=== PATIENT | male | born 1930 | race Caucasian/White ===

== ENCOUNTER 2017-09-24 12:44 | Emergency (ER) | payer MEDICARE, OTHER ==
[~2017-09-24] VITALS: Ht 180.3 cm; Wt 69.5 kg
[~2017-09-24 12:44] MED LIST: AMLO-512 PO; ATEN-188 PO; DUTA.5 PO; SIMV80TA2 PO
[2017-09-24] MEDS ORDERED: AMLO1CAP6 PO (12:57)
[2017-09-24] MEDS ORDERED: ACETAMINOPHEN 500 MG TABLET PO ONE (14:45)
[2017-09-24 16:30] VITALS: BP 130/78
== END 2017-09-24 16:50 | disposition home or self-care (01) ==
LOC: EMS 12:45
DX: S80.01XA Contusion of right knee, initial encounter (principal); S70.01XA Contusion of right hip, initial encounter; I10 Essential (primary) hypertension; W01.0XXA Fall on same level from slipping, tripping and stumbling without subsequent striking against object, initial encounter; Y93.01 Activity, walking, marching and hiking; Y92.89 Other specified places as the place of occurrence of the external cause; Y99.8 Other external cause status
CPT/HCPCS: 99284

== ENCOUNTER 2018-09-09 13:27 | Inpatient (IN) | payer MEDICARE, OTHER ==
[~2018-09-09] VITALS: Ht 188 cm; Wt 64.9 kg
[~2018-09-09 13:27] MED LIST changes: +ACET-2247 PO; -ATEN-188 PO; +AUD NEB; +BISA10S PR; +DSS100 PO; -DUTA.5 PO; +HYDR20I IVP; +IPRNEB IH; +LORA0.5T2 IVP; +MAGN296S PO; +MORP4CAR IV; +MULT-1239 PO; +PANT40TA25 PO; -SIMV80TA2 PO; +SOD62.5V IV; +[UNRECOGNIZED DRUG - CODE] IV
[2018-09-09 15:50] VITALS: BP 151/55
[2018-09-09] MEDS ORDERED: LORazepam 2 MG/ML VIAL IVP PRN (16:00)
[2018-09-09] MEDS ORDERED: MAGNESIUM SULFATE 4 GM/WATER 100 ML IV PRN (16:00)
[2018-09-09] MEDS ORDERED: IPRATROPIUM BROMIDE 0.5 MG/2.5 ML NEB SOLUTION NEB PRN (16:00)
[2018-09-09] MEDS ORDERED: MAGNESIUM SULFATE 2 GM/WATER 50 ML IV PRN (16:00)
[2018-09-09] MEDS ORDERED: DOCUSATE SODIUM 283 MG/5 ML MINI-ENEMA PR PRN (16:00)
[2018-09-09] MEDS ORDERED: ACETAMINOPHEN 325 MG TABLET PO PRN (16:00)
[2018-09-09] MEDS ORDERED: MAGNESIUM OXIDE 400 MG TABLET PO PRN (16:00)
[2018-09-09] MEDS ORDERED: ALBUTEROL SULFATE 2.5 MG/0.5 ML NEB SOLUTION NEB PRN (16:00)
[2018-09-09] MEDS: DEXTROSE 5%-0.45% SODIUM CHL 1,000 ML IV SCH (16:57)
[2018-09-09] MEDS: SENNA 187 MG TABLET PO SCH (20:57)
[2018-09-09] MEDS: DOCUSATE SODIUM 100 MG CAPSULE PO SCH (20:57)
[2018-09-09 23:00] VITALS: BP 153/67
[2018-09-10] MEDS: TraMADol HCL 50 MG TABLET PO PRN (00:14)
[2018-09-10] MEDS: 0.9% SODIUM CHLORIDE 10 ML SYRINGE IVP SCH ×3 (00:14→16:43)
[2018-09-10 07:54] LABS: BASOPHILS % (AUTO) 0.1 % (0.0-2.0); EOSINOPHILS % (AUTO) 4.1 % (1.0-6.0); HEMATOCRIT 22.3 % (41-53); HEMOGLOBIN 7.6 g/dL (13.5-17.5); LYMPHOCYTES # (AUTO) 0.5 K/uL (1.0-4.8); LYMPHOCYTES % (AUTO) 6.8 % (22.0-44.0); MEAN CORPUSCULAR HEMOGLOBIN 33.3 pg (26.0-34.0); MEAN CORPUSCULAR HGB CONC 34.2 G/dL (31.0-37.0); MEAN CORPUSCULAR VOLUME 97 fL (80-100); MONOCYTES # (AUTO) 0.8 K/uL (0.1-1.0); MONOCYTES % (AUTO) 10.8 % (2.0-9.0); NEUTROPHILS # (AUTO) 5.7 K/uL (1.8-7.7); NEUTROPHILS % (AUTO) 78.2 % (40.0-70.0); PLATELET COUNT (AUTO) 274 K/uL (150-450); RED BLOOD CELL COUNT(AUTO) 2.29 MIL/uL (4.50-5.90); RED CELL DISTRIBUTION WIDTH 27.2 % (11.5-14.5)
[2018-09-10 08:00] VITALS: BP 140/56
[2018-09-10 09:23] LABS: ALANINE AMINOTRANSFERASE 14 U/L (12-78); ALBUMIN 2.7 g/dL (3.4-5.0); ALKALINE PHOSPHATASE 59 U/L (46-116); ANION GAP 7 mmol/L (8-16); ASPARTATE AMINOTRANSFERASE 19 U/L (15-37); BILIRUBIN,TOTAL 1.4 mg/dL (0.1-1.0); CALCIUM, TOTAL 7.9 mg/dL (8.8-10.5); CARBON DIOXIDE 26 mmol/L (22-29); CHLORIDE 108 mmol/L (98-107); CREATININE 1.06 mg/dL (0.60-1.30); GLOMERULAR FILTR. RATE CALC > 60 mL/min (>60); GLUCOSE,RANDOM 127 mg/dL (70-110); POTASSIUM 4.1 mmol/L (3.5-5.1); SODIUM SERUM 141 mmol/L (136-145); TOTAL PROTEIN, SERUM 5.2 g/dL (6.4-8.2); UREA NITROGEN, BLOOD 25 mg/dL (7-18)
[2018-09-10] MEDS: DOCUSATE SODIUM 100 MG CAPSULE PO SCH ×2 (09:34→20:37)
[2018-09-10] MEDS: AmLODIPine BESYLATE 10 MG TABLET PO SCH (09:34)
[2018-09-10] MEDS: MULTIVITAMINS WITH MINERALS, THERAPEUTIC TABLET PO SCH (09:34)
[2018-09-10] MEDS: PANTOPRAZOLE SODIUM 40 MG DR TABLET PO SCH (09:34)
[2018-09-10] MEDS: CALCIUM CIT/VITAMIN D3 200 MG-250 UNITS TABLET PO SCH ×2 (12:08→20:37)
[2018-09-10] MEDS: DEXTROSE 5%-0.45% SODIUM CHL 1,000 ML IV SCH (12:10)
[2018-09-10 16:11] VITALS: BP 135/64
[2018-09-10] MEDS: FERROUS GLUCONATE 324 MG TABLET PO SCH (17:38)
[2018-09-10 20:35] VITALS: BP 147/58
[2018-09-10] MEDS: MELATONIN 3 MG TABLET PO PRN (20:37)
[2018-09-10] MEDS: SENNA 187 MG TABLET PO SCH (20:37)
[2018-09-11] VITALS: BP 140/61
[2018-09-11] MEDS: 0.9% SODIUM CHLORIDE 10 ML SYRINGE IVP SCH ×2 (00:24→08:00)
[2018-09-11 07:20] LABS: BASOPHILS % (AUTO) 0.1 % (0.0-2.0); EOSINOPHILS % (AUTO) 5.5 % (1.0-6.0); HEMATOCRIT 21.5 % (41-53); HEMOGLOBIN 7.4 g/dL (13.5-17.5); LYMPHOCYTES # (AUTO) 0.4 K/uL (1.0-4.8); LYMPHOCYTES % (AUTO) 5.4 % (22.0-44.0); MEAN CORPUSCULAR HEMOGLOBIN 33.7 pg (26.0-34.0); MEAN CORPUSCULAR HGB CONC 34.3 G/dL (31.0-37.0); MEAN CORPUSCULAR VOLUME 98 fL (80-100); MONOCYTES # (AUTO) 0.6 K/uL (0.1-1.0); MONOCYTES % (AUTO) 7.7 % (2.0-9.0); NEUTROPHILS # (AUTO) 6.5 K/uL (1.8-7.7); NEUTROPHILS % (AUTO) 81.3 % (40.0-70.0); PLATELET COUNT (AUTO) 281 K/uL (150-450); RED BLOOD CELL COUNT(AUTO) 2.19 MIL/uL (4.50-5.90); RED CELL DISTRIBUTION WIDTH 26.9 % (11.5-14.5)
[2018-09-11 07:32] VITALS: BP 155/62
[2018-09-11] MEDS: AmLODIPine BESYLATE 10 MG TABLET PO SCH (08:36)
[2018-09-11] MEDS: CALCIUM CIT/VITAMIN D3 200 MG-250 UNITS TABLET PO SCH ×2 (08:36→20:38)
[2018-09-11] MEDS: MULTIVITAMINS WITH MINERALS, THERAPEUTIC TABLET PO SCH (08:37)
[2018-09-11] MEDS: PANTOPRAZOLE SODIUM 40 MG DR TABLET PO SCH (08:37)
[2018-09-11] MEDS: FERROUS GLUCONATE 324 MG TABLET PO SCH ×2 (08:37→17:33)
[2018-09-11] MEDS: DOCUSATE SODIUM 100 MG CAPSULE PO SCH (08:37)
[2018-09-11] MEDS: DEXTROSE 5%-0.45% SODIUM CHL 1,000 ML IV SCH (08:53)
[2018-09-11 16:18] VITALS: BP_SYST 129; BP_SYST 134; BP_DIAS 58; BP_DIAS 60
[2018-09-11] MEDS: MAGNESIUM HYDROXIDE SUSPENSION 30 ML UDCUP PO PRN (20:37)
[2018-09-11] MEDS: SENNA 187 MG TABLET PO SCH (20:38)
[2018-09-11] MEDS: DOCUSATE SODIUM 250 MG CAPSULE PO SCH (20:38)
[2018-09-11] MEDS: MELATONIN 3 MG TABLET PO PRN (20:38)
[2018-09-12 00:22] VITALS: BP 150/84
[2018-09-12] MEDS: TraMADol HCL 50 MG TABLET PO PRN ×2 (01:26→23:47)
[2018-09-12 06:45] LABS: BASOPHILS % (AUTO) 0.2 % (0.0-2.0); EOSINOPHILS % (AUTO) 2.1 % (1.0-6.0); HEMATOCRIT 21.4 % (41-53); HEMOGLOBIN 7.4 g/dL (13.5-17.5); LYMPHOCYTES # (AUTO) 0.5 K/uL (1.0-4.8); LYMPHOCYTES % (AUTO) 5.7 % (22.0-44.0); MEAN CORPUSCULAR HEMOGLOBIN 33.9 pg (26.0-34.0); MEAN CORPUSCULAR HGB CONC 34.7 G/dL (31.0-37.0); MEAN CORPUSCULAR VOLUME 98 fL (80-100); MONOCYTES # (AUTO) 0.9 K/uL (0.1-1.0); MONOCYTES % (AUTO) 9.4 % (2.0-9.0); NEUTROPHILS # (AUTO) 7.5 K/uL (1.8-7.7); NEUTROPHILS % (AUTO) 82.6 % (40.0-70.0); PLATELET COUNT (AUTO) 289 K/uL (150-450); RED BLOOD CELL COUNT(AUTO) 2.19 MIL/uL (4.50-5.90); RED CELL DISTRIBUTION WIDTH 26.5 % (11.5-14.5)
[2018-09-12 07:55] VITALS: BP 153/63
[2018-09-12] MEDS: FERROUS GLUCONATE 324 MG TABLET PO SCH ×2 (08:26→17:54)
[2018-09-12] MEDS: AmLODIPine BESYLATE 10 MG TABLET PO SCH (08:26)
[2018-09-12] MEDS: PANTOPRAZOLE SODIUM 40 MG DR TABLET PO SCH (08:26)
[2018-09-12] MEDS: DOCUSATE SODIUM 250 MG CAPSULE PO SCH ×2 (08:26→20:29)
[2018-09-12] MEDS: MULTIVITAMINS WITH MINERALS, THERAPEUTIC TABLET PO SCH (08:26)
[2018-09-12] MEDS: CALCIUM CIT/VITAMIN D3 200 MG-250 UNITS TABLET PO SCH ×2 (08:27→20:29)
[2018-09-12] MEDS ORDERED: CAMPHOR/MENTHOL 222 ML LOTION TP PRN (09:00)
[2018-09-12 10:00] VITALS: BP 129/54
[2018-09-12 15:45] VITALS: BP 141/62
[2018-09-12] MEDS: SENNA 187 MG TABLET PO SCH (20:29)
[2018-09-12] MEDS: MELATONIN 3 MG TABLET PO PRN (20:30)
[2018-09-12 23:47] VITALS: BP 155/84
[2018-09-13] VITALS (7 sets, daily range): BP systolic 105–151; BP diastolic 57–77
[2018-09-13 07:03] LABS: CHOL/HDL RATIO 2.9 (4.2-7.3)
[2018-09-13] MEDS: DOCUSATE SODIUM 250 MG CAPSULE PO SCH ×2 (08:09→20:12)
[2018-09-13] MEDS: FERROUS GLUCONATE 324 MG TABLET PO SCH ×2 (08:09→17:13)
[2018-09-13] MEDS: CALCIUM CIT/VITAMIN D3 200 MG-250 UNITS TABLET PO SCH ×2 (08:10→20:12)
[2018-09-13] MEDS: MAGNESIUM HYDROXIDE SUSPENSION 30 ML UDCUP PO PRN (08:10)
[2018-09-13] MEDS: PANTOPRAZOLE SODIUM 40 MG DR TABLET PO SCH ×2 (08:10→17:12)
[2018-09-13] MEDS: MULTIVITAMINS WITH MINERALS, THERAPEUTIC TABLET PO SCH (08:10)
[2018-09-13] MEDS: AmLODIPine BESYLATE 10 MG TABLET PO SCH (08:10)
[2018-09-13] MEDS ORDERED: LACTULOSE 20 GM/30 ML SOLUTION UDCUP PO PRN (12:45)
[2018-09-13] MEDS ORDERED: EPOETIN ALFA 10,000 UNITS/ML VIAL SQ SCH (13:15)
[2018-09-13 20:09] LABS: % IRON SATURATION 19.5 % (30-44)
[2018-09-13] MEDS: SENNA 187 MG TABLET PO SCH (20:12)
[2018-09-13] MEDS: MELATONIN 3 MG TABLET PO PRN (20:12)
[2018-09-13] MEDS: TraMADol HCL 50 MG TABLET PO PRN (23:33)
[2018-09-14 01:57] LABS: APPEARANCE,URINE CLEAR (CLEAR); BILIRUBIN,URINE NEGATIVE (NEGATIVE); GLUCOSE, URINE (UA) NEGATIVE (NEGATIVE); KETONES,URINE TRACE mg/dL (NEGATIVE); LEUKOCYTE ESTERASE ,URINE NEGATIVE (NEGATIVE); NITRATE,URINE NEGATIVE (NEGATIVE); OCCULT BLOOD,URINE TRACE (NEGATIVE); PH,URINE 5.5 (5.0-8.0); PROTEIN,URINE NEGATIVE (NEGATIVE); UROBILINOGEN,URINE 0.2 mg/dL (<=1.0)
[2018-09-14 02:15] LABS: BACTERIA,URINE None Seen /HPF (None Seen); SQUAMOUS EPITHELIAL CELL,UR Few /LPF (None Seen)
[2018-09-14] MEDS: PANTOPRAZOLE SODIUM 40 MG DR TABLET PO SCH (06:31)
[2018-09-14 07:19] VITALS: BP 160/108
[2018-09-14 07:27] LABS: ANION GAP 6 mmol/L (8-16); CALCIUM, TOTAL 9.1 mg/dL (8.8-10.5); CARBON DIOXIDE 28 mmol/L (22-29); CHLORIDE 103 mmol/L (98-107); CREATININE 1.14 mg/dL (0.60-1.30); GLUCOSE,RANDOM 98 mg/dL (70-110); POTASSIUM 3.9 mmol/L (3.5-5.1); SODIUM SERUM 137 mmol/L (136-145); UREA NITROGEN, BLOOD 26 mg/dL (7-18)
[2018-09-14 07:28] LABS: GLOMERULAR FILTR. RATE CALC > 60 mL/min (>60)
[2018-09-14 08:00] VITALS: BP 149/62
[2018-09-14] MEDS: MULTIVITAMINS WITH MINERALS, THERAPEUTIC TABLET PO SCH (08:16)
[2018-09-14] MEDS: FERROUS GLUCONATE 324 MG TABLET PO SCH (08:16)
[2018-09-14] MEDS: CALCIUM CIT/VITAMIN D3 200 MG-250 UNITS TABLET PO SCH (08:16)
[2018-09-14] MEDS: AmLODIPine BESYLATE 10 MG TABLET PO SCH (08:16)
[2018-09-14] MEDS: DOCUSATE SODIUM 250 MG CAPSULE PO SCH (08:17)
[2018-09-14] MEDS ORDERED: CIPROFLOXACIN HCL 250 MG TABLET PO SCH (13:15)
[2018-09-14 13:19] LABS: GLUCOMETER DEV NAME(LOC) 2WR.1; GLUCOSE,POINT OF CARE 114 MG/DL (70-110)
[2018-09-14] MEDS ORDERED: SODIUM CHLORIDE 0.9% 1,000 ML IV ONE (13:33)
[2018-09-14] MEDS ORDERED: SODIUM CHLORIDE 0.9% 1,000 ML IV SCH (13:45)
[2018-09-14] MEDS ORDERED: ACETAMINOPHEN 325 MG TABLET PO PRN (14:00)
[2018-09-14] MEDS ORDERED: SODIUM CHLORIDE 0.9% 100 ML ONE (14:03)
[2018-09-14] MEDS ORDERED: IOVERSOL 350 MG/ML 100 ML VIAL ONE (14:03)
[2018-09-14 14:22] LABS: BASOPHILS % (AUTO) 0.7 % (0.0-2.0); EOSINOPHILS % (AUTO) 0.4 % (1.0-6.0); HEMATOCRIT 24.4 % (41-53); HEMOGLOBIN 8.1 g/dL (13.5-17.5); LYMPHOCYTES # (AUTO) 0.5 K/uL (1.0-4.8); LYMPHOCYTES % (AUTO) 1.4 % (22.0-44.0); MEAN CORPUSCULAR HEMOGLOBIN 32.7 pg (26.0-34.0); MEAN CORPUSCULAR HGB CONC 33.2 G/dL (31.0-37.0); MEAN CORPUSCULAR VOLUME 99 fL (80-100); MONOCYTES # (AUTO) 0.7 K/uL (0.1-1.0); MONOCYTES % (AUTO) 2.1 % (2.0-9.0); NEUTROPHILS # (AUTO) 32.2 K/uL (1.8-7.7); PLATELET COUNT (AUTO) 561 K/uL (150-450); RED BLOOD CELL COUNT(AUTO) 2.48 MIL/uL (4.50-5.90); RED CELL DISTRIBUTION WIDTH 26.7 % (11.5-14.5)
[2018-09-14 14:33] LABS: CALCIUM, TOTAL 9.4 mg/dL (8.8-10.5); CREATININE 1.27 mg/dL (0.60-1.30); POTASSIUM 4.6 mmol/L (3.5-5.1)
[2018-09-14 14:39] LABS: ALBUMIN 3.6 g/dL (3.4-5.0); BILIRUBIN,TOTAL 2.3 mg/dL (0.1-1.0); TOTAL PROTEIN, SERUM 6.6 g/dL (6.4-8.2)
[2018-09-14 14:52] LABS: NEUTROPHILS % (AUTO) 95.4 % (40.0-70.0)
[2018-09-14 15:42] LABS: PLATELET MORPHOLOGY COMMENT GIANT PLTS PRESENT
[2018-09-14] MEDS ORDERED: CefTRIAXone 1 GM/DEXTROSE 50 ML IV SCH (16:00)
[2018-09-15 13:06] LABS: ALPHA-1 (IFE & PEP) 0.4 g/dL (0.0-0.4); GAMMA GLOBULINS (IFE & ELP) 0.9 g/dL (0.4-1.8); IGM (IMMUNOFIXATION) 87 mg/dL (15-143)
== END 2018-09-14 14:15 | disposition short-term general hospital (02) | DRG 535 ==
LOC: 2WR 13:27
PROVIDERS: ADMIT Physical Medicine & Rehabilitation; ATTEND Physical Medicine & Rehabilitation
DX: S72.002A Fracture of unspecified part of neck of left femur, initial encounter for closed fracture (principal); J96.01 Acute respiratory failure with hypoxia; N39.0 Urinary tract infection, site not specified; N17.9 Acute kidney failure, unspecified; G93.40 Encephalopathy, unspecified; D64.9 Anemia, unspecified; I10 Essential (primary) hypertension; I48.91 Unspecified atrial fibrillation; D50.9 Iron deficiency anemia, unspecified; E83.51 Hypocalcemia; G47.00 Insomnia, unspecified; I12.9 Hypertensive chronic kidney disease with stage 1 through stage 4 chronic kidney disease, or unspecified chronic kidney disease; N18.9 Chronic kidney disease, unspecified; K21.9 Gastro-esophageal reflux disease without esophagitis; K59.00 Constipation, unspecified; Z86.73 Personal history of transient ischemic attack (TIA), and cerebral infarction without residual deficits; Z91.81 History of falling; Z79.899 Other long term (current) drug therapy
CPT/HCPCS: 71275; 82271; 82728; 82784; 83540; 83550; 83735; 84155; 84165; 85379; 86334; 87040; 87081; 87086; 92610; 93005; 94761; 97110; 97116; 97150; 97162; 97167; 97530; 97535; 99366; J0885; J7030; J7050

== ENCOUNTER 2018-09-14 14:40 | Inpatient (IN) | payer MEDICARE, OTHER ==
[~2018-09-14] VITALS: Ht 182.9 cm; Wt 64.5 kg
[2018-09-14] MEDS ORDERED: SODIUM CHLORIDE 0.9% 0 ML IV ONE ×2 (15:38→15:45)
[2018-09-14] MEDS ORDERED: ACETAMINOPHEN 650 MG RECTAL SUPPOSITORY PR PRN (15:45)
[2018-09-14 16:00] VITALS: BP 142/53
[2018-09-14] MEDS: PIPERACILLIN SODIUM/TAZOBACTAM 2.25 GM in DEXTROSE 5%-WATER 50 ML IV SCH ×2 (16:21→21:30)
[2018-09-14] MEDS ORDERED: ONDANSETRON HCL 4 MG/2 ML VIAL IVP PRN (17:15)
[2018-09-14] MEDS ORDERED: ALBUTEROL SULFATE 2.5 MG/0.5 ML NEB SOLUTION NEB PRN (17:15)
[2018-09-14] MEDS ORDERED: 0.9% SODIUM CHLORIDE 10 ML SYRINGE IVP PRN (17:15)
[2018-09-14] MEDS ORDERED: IPRATROPIUM BROMIDE 0.5 MG/2.5 ML NEB SOLUTION NEB PRN (17:15)
[2018-09-14] MEDS: SODIUM CHLORIDE 0.9% 1,000 ML IV SCH (18:53)
[2018-09-14 20:00] VITALS: BP 139/59
[2018-09-14] MEDS ORDERED: 0.9% SODIUM CHLORIDE 5 ML NEB SOLUTION NEB ONE (21:14)
[2018-09-14] MEDS: IPRATROPIUM BROMIDE 0.5 MG/2.5 ML NEB SOLUTION NEB SCH (21:16)
[2018-09-14] MEDS: ALBUTEROL SULFATE 2.5 MG/0.5 ML NEB SOLUTION NEB SCH (21:16)
[2018-09-14] MEDS: PANTOPRAZOLE SODIUM 40 MG/VIAL IVP SCH (21:29)
[2018-09-14 22:07] VITALS: BP 156/57
[2018-09-14] MEDS: MORPHINE SULFATE 4 MG/ML SYRINGE IVP PRN (22:07)
[2018-09-14 23:00] VITALS: BP 119/45
[2018-09-15] VITALS (15 sets, daily range): BP systolic 113–166; BP diastolic 45–107
[2018-09-15] MEDS: IPRATROPIUM BROMIDE 0.5 MG/2.5 ML NEB SOLUTION NEB SCH ×4 (02:07→19:56)
[2018-09-15] MEDS: ALBUTEROL SULFATE 2.5 MG/0.5 ML NEB SOLUTION NEB SCH ×4 (02:08→19:56)
[2018-09-15] MEDS: PIPERACILLIN SODIUM/TAZOBACTAM 2.25 GM in DEXTROSE 5%-WATER 50 ML IV SCH ×4 (04:56→22:28)
[2018-09-15 05:06] LABS: HEMOGLOBIN 7.1 g/dL (13.5-17.5); MEAN CORPUSCULAR HEMOGLOBIN 34.3 pg (26.0-34.0); MEAN CORPUSCULAR HGB CONC 34.4 G/dL (31.0-37.0); MEAN CORPUSCULAR VOLUME 100 fL (80-100); PLATELET COUNT (AUTO) 404 K/uL (150-450); RED BLOOD CELL COUNT(AUTO) 2.06 MIL/uL (4.50-5.90)
[2018-09-15 05:16] LABS: ANION GAP 5 mmol/L (8-16); CALCIUM, TOTAL 8.8 mg/dL (8.8-10.5); CARBON DIOXIDE 30 mmol/L (22-29); CHLORIDE 106 mmol/L (98-107); CREATININE 1.58 mg/dL (0.60-1.30); GLOMERULAR FILTR. RATE CALC 42 mL/min (>60); GLUCOSE,RANDOM 144 mg/dL (70-110); SODIUM SERUM 141 mmol/L (136-145); UREA NITROGEN, BLOOD 31 mg/dL (7-18)
[2018-09-15 05:35] LABS: LACTIC ACID 2.5 mmol/L (0.4-2.0)
[2018-09-15 06:03] LABS: HEMATOCRIT 20.5 % (41-53)
[2018-09-15 06:11] LABS: BAND NEUTROPHILS % (MANUAL) 39 % (0-5); LYMPHOCYTES % (MANUAL) 1 % (22-44); MONOCYTES % (MANUAL) 1 % (2-9); PLATELET MORPHOLOGY COMMENT GIANT PLTS PRESENT; SEGMENTED NEUTROPHILS % 59 % (40-70)
[2018-09-15] MEDS: PANTOPRAZOLE SODIUM 40 MG/VIAL IVP SCH ×2 (08:05→21:07)
[2018-09-15 11:34] LABS: BASOPHILS % (AUTO) 0.2 % (0.0-2.0); EOSINOPHILS % (AUTO) 1.3 % (1.0-6.0); LYMPHOCYTES # (AUTO) 0.6 K/uL (1.0-4.8); LYMPHOCYTES % (AUTO) 2.2 % (22.0-44.0); MEAN CORPUSCULAR HEMOGLOBIN 33.1 pg (26.0-34.0); MEAN CORPUSCULAR HGB CONC 33.9 G/dL (31.0-37.0); MEAN CORPUSCULAR VOLUME 98 fL (80-100); MONOCYTES # (AUTO) 1.4 K/uL (0.1-1.0); MONOCYTES % (AUTO) 5.3 % (2.0-9.0); NEUTROPHILS # (AUTO) 23.6 K/uL (1.8-7.7); PLATELET COUNT (AUTO) 402 K/uL (150-450); RED BLOOD CELL COUNT(AUTO) 2.03 MIL/uL (4.50-5.90); RED CELL DISTRIBUTION WIDTH 26.8 % (11.5-14.5)
[2018-09-15 11:39] LABS: HEMATOCRIT 19.8 % (41-53); HEMOGLOBIN 6.7 g/dL (13.5-17.5)
[2018-09-15] MEDS ORDERED: SODIUM CHLORIDE 0.9% 250 ML IV ONE (12:14)
[2018-09-15] MEDS: SODIUM CHLORIDE 0.9% 1,000 ML IV SCH (12:15)
[2018-09-15 12:25] LABS: PLATELET MORPHOLOGY COMMENT GIANT PLTS PRESENT
[2018-09-15 12:26] LABS: BILIRUBIN,DIRECT 0.8 mg/dL (0.00-0.20); BILIRUBIN,TOTAL 1.7 mg/dL (0.1-1.0); TOTAL PROTEIN, SERUM 5.5 g/dL (6.4-8.2)
[2018-09-15] MEDS: MORPHINE SULFATE 4 MG/ML SYRINGE IVP PRN ×2 (13:59→21:08)
[2018-09-15] MEDS: DOCUSATE SODIUM 100 MG CAPSULE PO SCH (21:07)
[2018-09-16] VITALS (8 sets, daily range): BP systolic 137–175; BP diastolic 58–76
[2018-09-16] MEDS: HALOPERIDOL LACTATE 5 MG/ML VIAL IVP PRN ×2 (00:08→09:32)
[2018-09-16] MEDS: IPRATROPIUM BROMIDE 0.5 MG/2.5 ML NEB SOLUTION NEB SCH ×4 (01:46→19:31)
[2018-09-16] MEDS: ALBUTEROL SULFATE 2.5 MG/0.5 ML NEB SOLUTION NEB SCH ×4 (01:46→19:31)
[2018-09-16] MEDS: PIPERACILLIN SODIUM/TAZOBACTAM 2.25 GM in DEXTROSE 5%-WATER 50 ML IV SCH ×4 (04:39→22:16)
[2018-09-16] MEDS: SODIUM CHLORIDE 0.9% 1,000 ML IV SCH ×2 (04:40→20:13)
[2018-09-16 04:54] LABS: BASOPHILS % (AUTO) 0.2 % (0.0-2.0); EOSINOPHILS % (AUTO) 0.2 % (1.0-6.0); HEMATOCRIT 24.9 % (41-53); HEMOGLOBIN 8.8 g/dL (13.5-17.5); LYMPHOCYTES # (AUTO) 0.2 K/uL (1.0-4.8); MEAN CORPUSCULAR HGB CONC 35.2 G/dL (31.0-37.0); MEAN CORPUSCULAR VOLUME 97 fL (80-100); MONOCYTES # (AUTO) 1.1 K/uL (0.1-1.0); NEUTROPHILS # (AUTO) 21.6 K/uL (1.8-7.7); PLATELET COUNT (AUTO) 488 K/uL (150-450); RED BLOOD CELL COUNT(AUTO) 2.57 MIL/uL (4.50-5.90); RED CELL DISTRIBUTION WIDTH 25.5 % (11.5-14.5)
[2018-09-16 04:56] LABS: NEUTROPHILS % (AUTO) 93.6 % (40.0-70.0)
[2018-09-16 05:04] LABS: CALCIUM, TOTAL 8.7 mg/dL (8.8-10.5); CREATININE 1.64 mg/dL (0.60-1.30); MAGNESIUM 1.8 mg/dL (1.80-2.40); POTASSIUM 4.7 mmol/L (3.5-5.1)
[2018-09-16 05:25] LABS: PLATELET MORPHOLOGY COMMENT GIANT PLTS PRESENT
[2018-09-16] MEDS: DOCUSATE SODIUM 100 MG CAPSULE PO SCH ×2 (07:42→20:12)
[2018-09-16] MEDS: PANTOPRAZOLE SODIUM 40 MG/VIAL IVP SCH ×2 (07:42→20:12)
[2018-09-16] MEDS: MORPHINE SULFATE 4 MG/ML SYRINGE IVP PRN ×2 (10:42→22:19)
[2018-09-16] MEDS: AmLODIPine BESYLATE 2.5 MG TABLET PO SCH (13:42)
[2018-09-17 00:02] VITALS: BP 149/57
[2018-09-17] MEDS: IPRATROPIUM BROMIDE 0.5 MG/2.5 ML NEB SOLUTION NEB SCH ×4 (02:33→20:04)
[2018-09-17] MEDS: ALBUTEROL SULFATE 2.5 MG/0.5 ML NEB SOLUTION NEB SCH ×4 (02:33→20:05)
[2018-09-17] MEDS: PIPERACILLIN SODIUM/TAZOBACTAM 2.25 GM in DEXTROSE 5%-WATER 50 ML IV SCH ×4 (02:58→21:06)
[2018-09-17 05:24] VITALS: BP 154/67
[2018-09-17 05:55] LABS: BASOPHILS % (AUTO) 0.1 % (0.0-2.0); EOSINOPHILS % (AUTO) 0.2 % (1.0-6.0); HEMATOCRIT 24.6 % (41-53); HEMOGLOBIN 8.8 g/dL (13.5-17.5); LYMPHOCYTES # (AUTO) 0.4 K/uL (1.0-4.8); LYMPHOCYTES % (AUTO) 2.3 % (22.0-44.0); MEAN CORPUSCULAR HEMOGLOBIN 35.1 pg (26.0-34.0); MEAN CORPUSCULAR HGB CONC 35.7 G/dL (31.0-37.0); MEAN CORPUSCULAR VOLUME 98 fL (80-100); MONOCYTES # (AUTO) 0.9 K/uL (0.1-1.0); MONOCYTES % (AUTO) 5.2 % (2.0-9.0); NEUTROPHILS # (AUTO) 16.2 K/uL (1.8-7.7); PLATELET COUNT (AUTO) 489 K/uL (150-450); RED CELL DISTRIBUTION WIDTH 24.9 % (11.5-14.5)
[2018-09-17 06:04] LABS: ALBUMIN 3.2 g/dL (3.4-5.0); BILIRUBIN,TOTAL 2.3 mg/dL (0.1-1.0); CALCIUM, TOTAL 8.7 mg/dL (8.8-10.5); CREATININE 1.62 mg/dL (0.60-1.30); POTASSIUM 4.5 mmol/L (3.5-5.1); TOTAL PROTEIN, SERUM 6.1 g/dL (6.4-8.2)
[2018-09-17 06:06] LABS: NEUTROPHILS % (AUTO) 92.2 % (40.0-70.0)
[2018-09-17 07:21] LABS: PLATELET MORPHOLOGY COMMENT LARGE PLTS PRESENT
[2018-09-17 07:43] VITALS: BP 155/62
[2018-09-17] MEDS: AmLODIPine BESYLATE 2.5 MG TABLET PO SCH (07:51)
[2018-09-17] MEDS: PANTOPRAZOLE SODIUM 40 MG/VIAL IVP SCH ×2 (07:51→20:36)
[2018-09-17] MEDS: DOCUSATE SODIUM 100 MG CAPSULE PO SCH ×2 (07:53→20:36)
[2018-09-17 11:24] VITALS: BP 150/65
[2018-09-17] MEDS: DEXTROSE 5%-WATER 1,000 ML IV SCH (11:57)
[2018-09-17 16:42] VITALS: BP 149/82
[2018-09-17 19:54] VITALS: BP 159/74
[2018-09-18 00:07] VITALS: BP 155/75
[2018-09-18] MEDS: IPRATROPIUM BROMIDE 0.5 MG/2.5 ML NEB SOLUTION NEB SCH ×4 (02:23→20:37)
[2018-09-18] MEDS: ALBUTEROL SULFATE 2.5 MG/0.5 ML NEB SOLUTION NEB SCH ×4 (02:23→20:37)
[2018-09-18] MEDS: PIPERACILLIN SODIUM/TAZOBACTAM 2.25 GM in DEXTROSE 5%-WATER 50 ML IV SCH ×4 (04:00→22:21)
[2018-09-18 04:04] VITALS: BP 153/62
[2018-09-18 07:02] LABS: BASOPHILS % (AUTO) 0.2 % (0.0-2.0); EOSINOPHILS % (AUTO) 0.4 % (1.0-6.0); HEMATOCRIT 24.4 % (41-53); HEMOGLOBIN 8.4 g/dL (13.5-17.5); LYMPHOCYTES # (AUTO) 0.3 K/uL (1.0-4.8); LYMPHOCYTES % (AUTO) 2.3 % (22.0-44.0); MEAN CORPUSCULAR HEMOGLOBIN 33.6 pg (26.0-34.0); MEAN CORPUSCULAR HGB CONC 34.5 G/dL (31.0-37.0); MEAN CORPUSCULAR VOLUME 98 fL (80-100); MONOCYTES # (AUTO) 0.7 K/uL (0.1-1.0); MONOCYTES % (AUTO) 5.8 % (2.0-9.0); NEUTROPHILS # (AUTO) 11.7 K/uL (1.8-7.7); PLATELET COUNT (AUTO) 479 K/uL (150-450); RED CELL DISTRIBUTION WIDTH 25.3 % (11.5-14.5)
[2018-09-18 07:16] LABS: BILIRUBIN,TOTAL 2.2 mg/dL (0.1-1.0); CALCIUM, TOTAL 8.4 mg/dL (8.8-10.5); CREATININE 1.45 mg/dL (0.60-1.30); PHOSPHORUS 2.6 mg/dL (2.5-4.9); POTASSIUM 3.6 mmol/L (3.5-5.1); TOTAL PROTEIN, SERUM 5.9 g/dL (6.4-8.2)
[2018-09-18 07:21] LABS: NEUTROPHILS % (AUTO) 91.3 % (40.0-70.0)
[2018-09-18 08:26] VITALS: BP 158/77
[2018-09-18] MEDS: PANTOPRAZOLE SODIUM 40 MG/VIAL IVP SCH ×2 (08:56→20:37)
[2018-09-18] MEDS: DOCUSATE SODIUM 100 MG CAPSULE PO SCH ×2 (08:56→20:37)
[2018-09-18] MEDS: DEXTROSE 5%-WATER 1,000 ML IV SCH (08:57)
[2018-09-18] MEDS: AmLODIPine BESYLATE 2.5 MG TABLET PO SCH (08:57)
[2018-09-18] MEDS: APIXABAN 2.5 MG TABLET PO SCH ×2 (09:00→20:37)
[2018-09-18 11:41] VITALS: BP 160/81
[2018-09-18] MEDS: BISACODYL 10 MG RECTAL RECTAL SUPPOSITORY PR PRN (15:34)
[2018-09-18 16:43] VITALS: BP 145/63
[2018-09-18 19:42] VITALS: BP 157/82
[2018-09-18] MEDS: CARVEDILOL 6.25 MG TABLET PO SCH (20:37)
[2018-09-19 00:38] VITALS: BP 153/75
[2018-09-19] MEDS: IPRATROPIUM BROMIDE 0.5 MG/2.5 ML NEB SOLUTION NEB SCH ×4 (02:33→19:38)
[2018-09-19] MEDS: ALBUTEROL SULFATE 2.5 MG/0.5 ML NEB SOLUTION NEB SCH ×4 (02:33→19:38)
[2018-09-19] MEDS: PIPERACILLIN SODIUM/TAZOBACTAM 2.25 GM in DEXTROSE 5%-WATER 50 ML IV SCH ×4 (04:08→21:20)
[2018-09-19] MEDS: DEXTROSE 5%-WATER 1,000 ML IV SCH (04:08)
[2018-09-19 04:30] VITALS: BP 157/82
[2018-09-19] MEDS ORDERED: EPINEPHrine 2 MG in DEXTROSE 5%-WATER 248 ML IV PRN (06:15)
[2018-09-19 06:28] LABS: BASOPHILS % (AUTO) 0.3 % (0.0-2.0); EOSINOPHILS % (AUTO) 0.3 % (1.0-6.0); LYMPHOCYTES # (AUTO) 0.7 K/uL (1.0-4.8); LYMPHOCYTES % (AUTO) 4.5 % (22.0-44.0); MEAN CORPUSCULAR HGB CONC 34.4 G/dL (31.0-37.0); MEAN CORPUSCULAR VOLUME 99 fL (80-100); MONOCYTES # (AUTO) 0.9 K/uL (0.1-1.0); MONOCYTES % (AUTO) 5.2 % (2.0-9.0); NEUTROPHILS # (AUTO) 14.8 K/uL (1.8-7.7); PLATELET COUNT (AUTO) 649 K/uL (150-450); RED BLOOD CELL COUNT(AUTO) 2.64 MIL/uL (4.50-5.90); RED CELL DISTRIBUTION WIDTH 25.1 % (11.5-14.5)
[2018-09-19] MEDS ORDERED: NOREPINEPHRINE 4 MG/D5%-WATER 250 ML IV ONE (07:03)
[2018-09-19 07:06] LABS: NEUTROPHILS % (AUTO) 89.7 % (40.0-70.0)
[2018-09-19 07:24] LABS: CALCIUM, TOTAL 7.8 mg/dL (8.8-10.5); CREATININE 1.36 mg/dL (0.60-1.30); POTASSIUM 4.2 mmol/L (3.5-5.1)
[2018-09-19 07:30] LABS: ALBUMIN 2.9 g/dL (3.4-5.0); BILIRUBIN,TOTAL 2.4 mg/dL (0.1-1.0); MAGNESIUM 1.8 mg/dL (1.80-2.40); PHOSPHORUS 2.9 mg/dL (2.5-4.9); TOTAL PROTEIN, SERUM 6.1 g/dL (6.4-8.2)
[2018-09-19] MEDS ORDERED: SODIUM CHLORIDE 0.9% 500 ML IV ONE (07:35)
[2018-09-19 08:00] VITALS: BP 180/77
[2018-09-19] MEDS ORDERED: NOREPINEPHRINE 4 MG/D5%-WATER 250 ML IV PRN ×2 (08:26→08:30)
[2018-09-19] MEDS: APIXABAN 2.5 MG TABLET PO SCH (09:00)
[2018-09-19] MEDS: AmLODIPine BESYLATE 5 MG TABLET PO SCH (09:00)
[2018-09-19] MEDS: CARVEDILOL 6.25 MG TABLET PO SCH ×2 (09:00→20:50)
[2018-09-19 09:28] LABS: ABG BASE EXCESS 1.8 mmol/L (-2.0-3.0); ABG CARBOXYHEMOGLOBIN 1.7 % (0.0-1.5); ABG HCO3 26.3 mmol/L (22.0-26.0); ABG METHEMOGLOBIN 0.5 % (0.0-1.5); ABG OXYGEN CONTENT 12.9 mL/dL (15.0-23.0); ABG OXYGEN SATURATION 99.2 % (95.0-98.0); ABG PCO2 31 mmHg (35-45); ABG PH 7.517 (7.35-7.450); ABG TOTAL HEMOGLOBIN 9.2 G/dL (12.0-18.0); PO2, ARTERIAL BG 141.4 mmHg (71.0-79.0); SOURCE, BLOOD GAS ARTERIAL; TEMPERATURE, FAHRENHEIT, BG 97.5 FAHREN (96.0-98.6)
[2018-09-19 09:29] LABS: O2 DEVICE,BLOOD GAS VENTILATOR (ROOM AIR); PEEP,BG 5 cm H2O; SITE, BLOOD GAS LFT RADIAL; VT, ABG 500 ml
[2018-09-19] MEDS ORDERED: SODIUM CHLORIDE 0.9% 250 ML IV ONE (10:01)
[2018-09-19] MEDS: PANTOPRAZOLE SODIUM 40 MG/VIAL IVP SCH ×2 (10:50→20:50)
[2018-09-19] MEDS: DOCUSATE SODIUM 100 MG CAPSULE PO SCH ×2 (10:50→20:50)
[2018-09-19 12:00] VITALS: BP 156/76
[2018-09-19] MEDS: PROPOFOL 1000 MG/ISO-OSM 100 ML IV PRN (13:00)
[2018-09-19] MEDS ORDERED: PROPOFOL 1000 MG/ISO-OSM 100 ML IV ONE (13:04)
[2018-09-19 16:00] VITALS: BP 141/72
[2018-09-19 20:00] VITALS: BP 137/63
[2018-09-20] VITALS: BP 117/53
[2018-09-20] MEDS: PROPOFOL 1000 MG/ISO-OSM 100 ML IV PRN ×2 (00:49→17:35)
[2018-09-20] MEDS: IPRATROPIUM BROMIDE 0.5 MG/2.5 ML NEB SOLUTION NEB SCH ×4 (02:34→19:36)
[2018-09-20] MEDS: ALBUTEROL SULFATE 2.5 MG/0.5 ML NEB SOLUTION NEB SCH ×4 (02:34→19:36)
[2018-09-20 04:00] VITALS: BP 118/73
[2018-09-20] MEDS: PIPERACILLIN SODIUM/TAZOBACTAM 2.25 GM in DEXTROSE 5%-WATER 50 ML IV SCH ×4 (04:28→22:01)
[2018-09-20 05:14] LABS: BASOPHILS % (AUTO) 0.1 % (0.0-2.0); EOSINOPHILS % (AUTO) 0.6 % (1.0-6.0); HEMATOCRIT 24.4 % (41-53); HEMOGLOBIN 8.7 g/dL (13.5-17.5); LYMPHOCYTES # (AUTO) 0.4 K/uL (1.0-4.8); MEAN CORPUSCULAR HEMOGLOBIN 34.9 pg (26.0-34.0); MEAN CORPUSCULAR HGB CONC 35.8 G/dL (31.0-37.0); MEAN CORPUSCULAR VOLUME 98 fL (80-100); MONOCYTES # (AUTO) 0.8 K/uL (0.1-1.0); MONOCYTES % (AUTO) 5.8 % (2.0-9.0); NEUTROPHILS # (AUTO) 11.9 K/uL (1.8-7.7); PLATELET COUNT (AUTO) 348 K/uL (150-450); RED CELL DISTRIBUTION WIDTH 25.6 % (11.5-14.5)
[2018-09-20 05:15] LABS: NEUTROPHILS % (AUTO) 90.5 % (40.0-70.0)
[2018-09-20 05:25] LABS: CALCIUM, TOTAL 7.7 mg/dL (8.8-10.5); CREATININE 1.77 mg/dL (0.60-1.30); MAGNESIUM 1.8 mg/dL (1.80-2.40); PHOSPHORUS 3.5 mg/dL (2.5-4.9); POTASSIUM 3.6 mmol/L (3.5-5.1)
[2018-09-20] MEDS ORDERED: DEXTROSE 5%-WATER 1,000 ML IV SCH (07:30)
[2018-09-20 08:00] VITALS: BP 106/49
[2018-09-20] MEDS: CARVEDILOL 6.25 MG TABLET PO SCH (08:57)
[2018-09-20] MEDS: DOCUSATE SODIUM 100 MG CAPSULE PO SCH ×2 (08:57→21:00)
[2018-09-20] MEDS: PANTOPRAZOLE SODIUM 40 MG/VIAL IVP SCH ×2 (08:57→22:00)
[2018-09-20] MEDS: AmLODIPine BESYLATE 5 MG TABLET PO SCH (08:58)
[2018-09-20 12:00] VITALS: BP 125/58
[2018-09-20 16:00] VITALS: BP 137/63
[2018-09-20] MEDS ORDERED: SODIUM BICARBONATE [ADULT] 8.4% 50 MEQ/50 ML SYRINGE IVP ONE (17:17)
[2018-09-20] MEDS ORDERED: EPINEPHrine 1:10,000 [1 MG/10 ML] SYRINGE IVP ONE (17:17)
[2018-09-20] MEDS ORDERED: ATROPINE SULFATE 0.1 MG/ML 10 ML SYRINGE IVP ONE (17:17)
[2018-09-20 18:59] LABS: THYROID STIMULATING HORMONE 2.12 uIU/mL (0.36-3.74)
[2018-09-20 20:00] VITALS: BP 142/85
[2018-09-21] VITALS (8 sets, daily range): BP systolic 117–170; BP diastolic 57–77
[2018-09-21] LABS: GLUCOMETER DEV NAME(LOC) 5N.1; GLUCOSE,POINT OF CARE 187 MG/DL (70-110)
[2018-09-21] MEDS: ALBUTEROL SULFATE 2.5 MG/0.5 ML NEB SOLUTION NEB SCH ×4 (01:32→20:17)
[2018-09-21] MEDS: IPRATROPIUM BROMIDE 0.5 MG/2.5 ML NEB SOLUTION NEB SCH ×4 (01:32→20:16)
[2018-09-21] MEDS: PIPERACILLIN SODIUM/TAZOBACTAM 2.25 GM in DEXTROSE 5%-WATER 50 ML IV SCH ×4 (04:12→21:59)
[2018-09-21] MEDS: PROPOFOL 1000 MG/ISO-OSM 100 ML IV PRN (04:17)
[2018-09-21] MEDS: PANTOPRAZOLE SODIUM 40 MG/VIAL IVP SCH ×2 (08:30→20:54)
[2018-09-21] MEDS: AmLODIPine BESYLATE 5 MG TABLET PO SCH (08:30)
[2018-09-21] MEDS: DOCUSATE SODIUM 100 MG CAPSULE PO SCH ×2 (08:31→21:00)
[2018-09-21 09:37] LABS: BASOPHILS % (AUTO) 0.6 % (0.0-2.0); EOSINOPHILS % (AUTO) 3.9 % (1.0-6.0); HEMATOCRIT 24.9 % (41-53); HEMOGLOBIN 8.7 g/dL (13.5-17.5); LYMPHOCYTES # (AUTO) 0.5 K/uL (1.0-4.8); LYMPHOCYTES % (AUTO) 4.7 % (22.0-44.0); MEAN CORPUSCULAR HEMOGLOBIN 33.7 pg (26.0-34.0); MEAN CORPUSCULAR VOLUME 96 fL (80-100); MONOCYTES # (AUTO) 0.6 K/uL (0.1-1.0); MONOCYTES % (AUTO) 4.8 % (2.0-9.0); PLATELET COUNT (AUTO) 289 K/uL (150-450); RED BLOOD CELL COUNT(AUTO) 2.58 MIL/uL (4.50-5.90); RED CELL DISTRIBUTION WIDTH 26.2 % (11.5-14.5)
[2018-09-21 09:48] LABS: CALCIUM, TOTAL 7.6 mg/dL (8.8-10.5); CREATININE 1.99 mg/dL (0.60-1.30)
[2018-09-21 10:09] LABS: PLATELET MORPHOLOGY COMMENT LARGE PLTS PRESENT
[2018-09-21] MEDS ORDERED: POTASSIUM CHLORIDE 10% 40 MEQ/30 ML LIQUID UDCUP GT ONE (10:15)
[2018-09-21 13:40] LABS: ABG A-A DIFF O2 152.7 mmHg (10-20.0); ABG BASE EXCESS 2.5 mmol/L (-2.0-3.0); ABG CARBOXYHEMOGLOBIN 1.7 % (0.0-1.5); ABG HCO3 26.7 mmol/L (22.0-26.0); ABG METHEMOGLOBIN 0.2 % (0.0-1.5); ABG OXYGEN CONTENT 12.5 mL/dL (15.0-23.0); ABG OXYGEN SATURATION 97.1 % (95.0-98.0); ABG OXYHEMOGLOBIN 95.3 % (94.0-100.0); ABG PCO2 35 mmHg (35-45); ABG PH 7.487 (7.35-7.450); ABG TOTAL HEMOGLOBIN 9.2 G/dL (12.0-18.0); PO2, ARTERIAL BG 92.5 mmHg (71.0-79.0); SOURCE, BLOOD GAS ARTERIAL; TEMPERATURE, FAHRENHEIT, BG 98.1 FAHREN (96.0-98.6)
[2018-09-21 13:41] LABS: O2 DEVICE,BLOOD GAS VENTILATOR (ROOM AIR); PEEP,BG 0 cm H2O; PRESSURE SUPPORT, BG 8 cm H2O; SITE, BLOOD GAS RT RADIAL; SPONTANEOUS VT, BG 546 ml; VENT MODE, BG CPAP (ROOM AIR)
[2018-09-21] MEDS: MORPHINE SULFATE 4 MG/ML SYRINGE IVP PRN (20:55)
[2018-09-22] VITALS: BP 176/75
[2018-09-22] MEDS: IPRATROPIUM BROMIDE 0.5 MG/2.5 ML NEB SOLUTION NEB SCH ×4 (02:02→20:14)
[2018-09-22] MEDS: ALBUTEROL SULFATE 2.5 MG/0.5 ML NEB SOLUTION NEB SCH ×4 (02:02→20:14)
[2018-09-22] MEDS ORDERED: SODIUM CHLORIDE 0.9% 250 ML IV ONE (02:41)
[2018-09-22 04:00] VITALS: BP 151/65
[2018-09-22] MEDS: PIPERACILLIN SODIUM/TAZOBACTAM 2.25 GM in DEXTROSE 5%-WATER 50 ML IV SCH ×4 (04:00→22:05)
[2018-09-22 04:55] LABS: BASOPHILS % (AUTO) 0.6 % (0.0-2.0); EOSINOPHILS % (AUTO) 2.9 % (1.0-6.0); HEMATOCRIT 26.7 % (41-53); HEMOGLOBIN 9.6 g/dL (13.5-17.5); LYMPHOCYTES # (AUTO) 0.6 K/uL (1.0-4.8); MEAN CORPUSCULAR HEMOGLOBIN 35.1 pg (26.0-34.0); MEAN CORPUSCULAR HGB CONC 35.9 G/dL (31.0-37.0); MEAN CORPUSCULAR VOLUME 98 fL (80-100); MONOCYTES # (AUTO) 0.7 K/uL (0.1-1.0); MONOCYTES % (AUTO) 6.3 % (2.0-9.0); NEUTROPHILS # (AUTO) 10.1 K/uL (1.8-7.7); PLATELET COUNT (AUTO) 292 K/uL (150-450); RED BLOOD CELL COUNT(AUTO) 2.74 MIL/uL (4.50-5.90); RED CELL DISTRIBUTION WIDTH 26.1 % (11.5-14.5)
[2018-09-22 05:01] LABS: NEUTROPHILS % (AUTO) 85.2 % (40.0-70.0)
[2018-09-22 05:05] LABS: CREATININE 1.85 mg/dL (0.60-1.30); PHOSPHORUS 3.4 mg/dL (2.5-4.9); POTASSIUM 3.4 mmol/L (3.5-5.1)
[2018-09-22 08:00] VITALS: BP 151/64
[2018-09-22] MEDS: AmLODIPine BESYLATE 5 MG TABLET PO SCH (08:58)
[2018-09-22] MEDS: PANTOPRAZOLE SODIUM 40 MG/VIAL IVP SCH ×2 (08:58→20:33)
[2018-09-22] MEDS: DOCUSATE SODIUM 100 MG CAPSULE PO SCH ×2 (09:00→20:34)
[2018-09-22] MEDS ORDERED: MEBROFENIN TC99M/MCL ISOTOPE 1 EA INJ INJ ONE (10:05)
[2018-09-22 10:53] LABS: ALBUMIN 2.4 g/dL (3.4-5.0); BILIRUBIN,DIRECT 0.8 mg/dL (0.00-0.20); BILIRUBIN,TOTAL 1.5 mg/dL (0.1-1.0); TOTAL PROTEIN, SERUM 5.5 g/dL (6.4-8.2)
[2018-09-22] MEDS: POTASSIUM CHL 10 MEQ/WATER 50 ML IV SCH ×2 (11:30→11:43)
[2018-09-22] MEDS: POTASSIUM CHLORIDE 10 MEQ in DEXTROSE 5%-WATER 1,000 ML IV SCH (11:39)
[2018-09-22 12:00] VITALS: BP 158/72
[2018-09-22 13:49] LABS: GLUCOSE,POINT OF CARE 132 MG/DL (70-110)
[2018-09-22 15:23] VITALS: BP 156/82
[2018-09-22 20:10] VITALS: BP 158/62
[2018-09-23] VITALS (7 sets, daily range): BP systolic 142–164; BP diastolic 58–76
[2018-09-23] MEDS: ALBUTEROL SULFATE 2.5 MG/0.5 ML NEB SOLUTION NEB SCH ×4 (02:00→20:05)
[2018-09-23] MEDS: IPRATROPIUM BROMIDE 0.5 MG/2.5 ML NEB SOLUTION NEB SCH ×4 (02:00→20:05)
[2018-09-23] MEDS: PIPERACILLIN SODIUM/TAZOBACTAM 2.25 GM in DEXTROSE 5%-WATER 50 ML IV SCH ×4 (04:57→21:17)
[2018-09-23] MEDS: POTASSIUM CHLORIDE 10 MEQ in DEXTROSE 5%-WATER 1,000 ML IV SCH (06:18)
[2018-09-23 06:50] LABS: CREATININE 1.51 mg/dL (0.60-1.30); POTASSIUM 4.1 mmol/L (3.5-5.1)
[2018-09-23] MEDS ORDERED: SODIUM CHLORIDE 0.9% 100 ML ONE (09:37)
[2018-09-23] MEDS: AmLODIPine BESYLATE 5 MG TABLET PO SCH (09:43)
[2018-09-23] MEDS: PANTOPRAZOLE SODIUM 40 MG/VIAL IVP SCH ×2 (09:43→21:07)
[2018-09-23] MEDS: DOCUSATE SODIUM 100 MG CAPSULE PO SCH ×2 (09:43→21:00)
[2018-09-23] MEDS ORDERED: AmLODIPine BESYLATE 5 MG TABLET PO ONE (12:15)
[2018-09-24] MEDS: IPRATROPIUM BROMIDE 0.5 MG/2.5 ML NEB SOLUTION NEB SCH ×4 (03:19→20:05)
[2018-09-24] MEDS: ALBUTEROL SULFATE 2.5 MG/0.5 ML NEB SOLUTION NEB SCH ×4 (03:19→20:04)
[2018-09-24 03:33] VITALS: BP 146/68
[2018-09-24] MEDS: PIPERACILLIN SODIUM/TAZOBACTAM 2.25 GM in DEXTROSE 5%-WATER 50 ML IV SCH ×4 (03:39→22:08)
[2018-09-24] MEDS: POTASSIUM CHLORIDE 10 MEQ in DEXTROSE 5%-WATER 1,000 ML IV SCH (03:51)
[2018-09-24 07:35] LABS: BASOPHILS % (AUTO) 0.3 % (0.0-2.0); EOSINOPHILS % (AUTO) 5.7 % (1.0-6.0); HEMATOCRIT 26.2 % (41-53); HEMOGLOBIN 8.7 g/dL (13.5-17.5); LYMPHOCYTES # (AUTO) 0.5 K/uL (1.0-4.8); LYMPHOCYTES % (AUTO) 4.9 % (22.0-44.0); MEAN CORPUSCULAR HGB CONC 33.1 G/dL (31.0-37.0); MEAN CORPUSCULAR VOLUME 100 fL (80-100); MONOCYTES # (AUTO) 0.7 K/uL (0.1-1.0); MONOCYTES % (AUTO) 7.9 % (2.0-9.0); NEUTROPHILS # (AUTO) 7.6 K/uL (1.8-7.7); NEUTROPHILS % (AUTO) 81.2 % (40.0-70.0); PLATELET COUNT (AUTO) 228 K/uL (150-450); RED BLOOD CELL COUNT(AUTO) 2.64 MIL/uL (4.50-5.90); RED CELL DISTRIBUTION WIDTH 26.3 % (11.5-14.5)
[2018-09-24 07:39] LABS: ALBUMIN 2.4 g/dL (3.4-5.0); BILIRUBIN,TOTAL 1.5 mg/dL (0.1-1.0); CALCIUM, TOTAL 7.5 mg/dL (8.8-10.5); CREATININE 1.41 mg/dL (0.60-1.30); POTASSIUM 3.6 mmol/L (3.5-5.1); TOTAL PROTEIN, SERUM 5.2 g/dL (6.4-8.2)
[2018-09-24 07:40] VITALS: BP 154/73
[2018-09-24] MEDS: PANTOPRAZOLE SODIUM 40 MG/VIAL IVP SCH ×2 (08:02→20:32)
[2018-09-24] MEDS: DOCUSATE SODIUM 100 MG CAPSULE PO SCH ×2 (08:03→20:32)
[2018-09-24] MEDS: AmLODIPine BESYLATE 10 MG TABLET PO SCH (08:03)
[2018-09-24 11:19] VITALS: BP 131/59
[2018-09-24 15:31] VITALS: BP 150/72
[2018-09-24 19:46] VITALS: BP 146/80
[2018-09-25] VITALS (7 sets, daily range): BP systolic 127–162; BP diastolic 65–80
[2018-09-25] MEDS: ALBUTEROL SULFATE 2.5 MG/0.5 ML NEB SOLUTION NEB SCH ×4 (01:46→19:59)
[2018-09-25] MEDS: IPRATROPIUM BROMIDE 0.5 MG/2.5 ML NEB SOLUTION NEB SCH ×4 (01:46→19:59)
[2018-09-25] MEDS: BISACODYL 10 MG RECTAL RECTAL SUPPOSITORY PR PRN (02:35)
[2018-09-25] MEDS: POTASSIUM CHLORIDE 10 MEQ in DEXTROSE 5%-WATER 1,000 ML IV SCH (03:09)
[2018-09-25] MEDS: PIPERACILLIN SODIUM/TAZOBACTAM 2.25 GM in DEXTROSE 5%-WATER 50 ML IV SCH ×4 (03:13→21:16)
[2018-09-25] MEDS: PANTOPRAZOLE SODIUM 40 MG/VIAL IVP SCH ×2 (08:40→21:15)
[2018-09-25] MEDS: DOCUSATE SODIUM 100 MG CAPSULE PO SCH ×2 (08:40→21:00)
[2018-09-25] MEDS: AmLODIPine BESYLATE 10 MG TABLET PO SCH (08:40)
[2018-09-25] MEDS ORDERED: EPOETIN ALFA 10,000 UNITS/ML VIAL SQ SCH (10:40)
[2018-09-26] MEDS: IPRATROPIUM BROMIDE 0.5 MG/2.5 ML NEB SOLUTION NEB SCH ×4 (01:52→20:20)
[2018-09-26] MEDS: ALBUTEROL SULFATE 2.5 MG/0.5 ML NEB SOLUTION NEB SCH ×4 (01:52→20:20)
[2018-09-26 03:49] VITALS: BP 149/65
[2018-09-26] MEDS: PIPERACILLIN SODIUM/TAZOBACTAM 2.25 GM in DEXTROSE 5%-WATER 50 ML IV SCH ×4 (04:08→21:01)
[2018-09-26] MEDS: POTASSIUM CHLORIDE 10 MEQ in DEXTROSE 5%-WATER 1,000 ML IV SCH (04:10)
[2018-09-26 06:48] LABS: BASOPHILS % (AUTO) 0.6 % (0.0-2.0); EOSINOPHILS % (AUTO) 6.3 % (1.0-6.0); HEMATOCRIT 25.5 % (41-53); HEMOGLOBIN 8.8 g/dL (13.5-17.5); LYMPHOCYTES # (AUTO) 0.5 K/uL (1.0-4.8); LYMPHOCYTES % (AUTO) 6.5 % (22.0-44.0); MEAN CORPUSCULAR HEMOGLOBIN 33.3 pg (26.0-34.0); MEAN CORPUSCULAR HGB CONC 34.4 G/dL (31.0-37.0); MEAN CORPUSCULAR VOLUME 97 fL (80-100); MONOCYTES # (AUTO) 0.6 K/uL (0.1-1.0); MONOCYTES % (AUTO) 8.1 % (2.0-9.0); NEUTROPHILS # (AUTO) 6.2 K/uL (1.8-7.7); NEUTROPHILS % (AUTO) 78.5 % (40.0-70.0); PLATELET COUNT (AUTO) 225 K/uL (150-450); RED BLOOD CELL COUNT(AUTO) 2.64 MIL/uL (4.50-5.90); RED CELL DISTRIBUTION WIDTH 26.4 % (11.5-14.5)
[2018-09-26 07:14] LABS: BILIRUBIN,DIRECT 0.8 mg/dL (0.00-0.20); BILIRUBIN,TOTAL 1.5 mg/dL (0.1-1.0); CREATININE 1.35 mg/dL (0.60-1.30); PHOSPHORUS 2.5 mg/dL (2.5-4.9); POTASSIUM 3.8 mmol/L (3.5-5.1)
[2018-09-26 07:20] VITALS: BP 154/76
[2018-09-26] MEDS: AmLODIPine BESYLATE 10 MG TABLET PO SCH (08:37)
[2018-09-26] MEDS: DOCUSATE SODIUM 100 MG CAPSULE PO SCH ×3 (08:37→21:01)
[2018-09-26] MEDS: PANTOPRAZOLE SODIUM 40 MG/VIAL IVP SCH ×2 (08:37→21:01)
[2018-09-26 11:55] VITALS: BP 148/70
[2018-09-26] MEDS: POTASSIUM CHL 10 MEQ/D5-0.45NS 1,000 ML IV SCH (12:00)
[2018-09-26 16:32] VITALS: BP 150/71
[2018-09-26 19:59] VITALS: BP 158/73
[2018-09-26 23:41] VITALS: BP 153/74
[2018-09-27] MEDS: ALBUTEROL SULFATE 2.5 MG/0.5 ML NEB SOLUTION NEB SCH ×4 (02:44→19:41)
[2018-09-27] MEDS: IPRATROPIUM BROMIDE 0.5 MG/2.5 ML NEB SOLUTION NEB SCH ×4 (02:45→19:41)
[2018-09-27 04:45] VITALS: BP 126/67
[2018-09-27] MEDS: PIPERACILLIN SODIUM/TAZOBACTAM 2.25 GM in DEXTROSE 5%-WATER 50 ML IV SCH ×4 (04:50→21:22)
[2018-09-27 06:37] LABS: CALCIUM, TOTAL 8.2 mg/dL (8.8-10.5); CREATININE 1.41 mg/dL (0.60-1.30); POTASSIUM 3.6 mmol/L (3.5-5.1)
[2018-09-27 07:45] VITALS: BP 161/69
[2018-09-27] MEDS: PANTOPRAZOLE SODIUM 40 MG/VIAL IVP SCH ×2 (08:50→21:22)
[2018-09-27] MEDS: AmLODIPine BESYLATE 10 MG TABLET PO SCH (08:51)
[2018-09-27] MEDS: DOCUSATE SODIUM 100 MG CAPSULE PO SCH ×2 (08:51→21:00)
[2018-09-27] MEDS: HALOPERIDOL LACTATE 5 MG/ML VIAL IVP PRN (09:11)
[2018-09-27 11:43] VITALS: BP 142/79
[2018-09-27 14:03] LABS: INR 1.3 (0.9-1.1); PROTHROMBIN TIME 13.9 SEC (9.4-11.6)
[2018-09-27 15:59] VITALS: BP 143/77
[2018-09-27] MEDS: POTASSIUM CHL 10 MEQ/D5-0.45NS 1,000 ML IV SCH (16:13)
[2018-09-27 20:27] VITALS: BP 153/83
[2018-09-28] VITALS (7 sets, daily range): BP systolic 143–160; BP diastolic 70–93
[2018-09-28] MEDS: ALBUTEROL SULFATE 2.5 MG/0.5 ML NEB SOLUTION NEB SCH ×4 (01:57→20:42)
[2018-09-28] MEDS: IPRATROPIUM BROMIDE 0.5 MG/2.5 ML NEB SOLUTION NEB SCH ×4 (01:57→20:42)
[2018-09-28] MEDS: PIPERACILLIN SODIUM/TAZOBACTAM 2.25 GM in DEXTROSE 5%-WATER 50 ML IV SCH ×4 (04:45→21:41)
[2018-09-28] MEDS: PANTOPRAZOLE SODIUM 40 MG/VIAL IVP SCH ×2 (08:54→21:42)
[2018-09-28] MEDS: AmLODIPine BESYLATE 10 MG TABLET PO SCH (08:55)
[2018-09-28] MEDS: DOCUSATE SODIUM 100 MG CAPSULE PO SCH ×2 (08:55→21:00)
[2018-09-28] MEDS: POTASSIUM CHL 10 MEQ/D5-0.45NS 1,000 ML IV SCH (15:59)
[2018-09-29] MEDS: ALBUTEROL SULFATE 2.5 MG/0.5 ML NEB SOLUTION NEB SCH ×3 (02:19→14:22)
[2018-09-29] MEDS: IPRATROPIUM BROMIDE 0.5 MG/2.5 ML NEB SOLUTION NEB SCH ×3 (02:19→14:22)
[2018-09-29] MEDS: PIPERACILLIN SODIUM/TAZOBACTAM 2.25 GM in DEXTROSE 5%-WATER 50 ML IV SCH ×2 (04:06→10:31)
[2018-09-29 04:18] VITALS: BP 145/75
[2018-09-29 08:03] VITALS: BP 142/56
[2018-09-29] MEDS: PANTOPRAZOLE SODIUM 40 MG/VIAL IVP SCH (08:49)
[2018-09-29] MEDS: AmLODIPine BESYLATE 10 MG TABLET PO SCH (08:49)
[2018-09-29] MEDS: DOCUSATE SODIUM 100 MG CAPSULE PO SCH (08:49)
[2018-09-29 11:15] VITALS: BP 148/67
[2018-09-29] MEDS: POTASSIUM CHL 10 MEQ/D5-0.45NS 1,000 ML IV SCH (12:06)
[2018-09-29] MEDS ORDERED: EPOETIN ALFA 10,000 UNITS/ML VIAL SQ SCH (14:00)
[2018-09-29 14:50] VITALS: BP 137/77
== END 2018-09-29 15:05 | disposition hospice, home (50) | DRG 871 ==
LOC: ICU 14:40 → 5S 09-16 18:15 → ICU 09-19 05:54 → 5N 09-22 14:45
PROVIDERS: ADMIT Internal Medicine Geriatric Medicine; ATTEND Internal Medicine Geriatric Medicine
PROC: 30233N1 Transfusion of Nonautologous Red Blood Cells into Peripheral Vein, Percutaneous Approach (ICD-10-PCS; 2018-09-15)
PROC: 05HY33Z Insertion of Infusion Device into Upper Vein, Percutaneous Approach (ICD-10-PCS; 2018-09-15)
PROC: B54MZZA Ultrasonography of Right Upper Extremity Veins, Guidance (ICD-10-PCS; 2018-09-15)
PROC: 5A1945Z Respiratory Ventilation, 24-96 Consecutive Hours (ICD-10-PCS; principal; 2018-09-19)
PROC: 0BH17EZ Insertion of Endotracheal Airway into Trachea, Via Natural or Artificial Opening (ICD-10-PCS; 2018-09-19)
PROC: 5A12012 Performance of Cardiac Output, Single, Manual (ICD-10-PCS; 2018-09-19)
PROC: 05HY33Z Insertion of Infusion Device into Upper Vein, Percutaneous Approach (ICD-10-PCS; 2018-09-20)
PROC: B54MZZA Ultrasonography of Right Upper Extremity Veins, Guidance (ICD-10-PCS; 2018-09-20)
DX: A41.9 Sepsis, unspecified organism (principal); I46.9 Cardiac arrest, cause unspecified; J96.00 Acute respiratory failure, unspecified whether with hypoxia or hypercapnia; E43 Unspecified severe protein-calorie malnutrition; I63.9 Cerebral infarction, unspecified; J69.0 Pneumonitis due to inhalation of food and vomit; N17.9 Acute kidney failure, unspecified; I13.0 Hypertensive heart and chronic kidney disease with heart failure and stage 1 through stage 4 chronic kidney disease, or unspecified chronic kidney disease; E87.0 Hyperosmolality and hypernatremia; E87.2 Acidosis; N39.0 Urinary tract infection, site not specified; G93.40 Encephalopathy, unspecified; Z68.1 Body mass index [BMI] 19.9 or less, adult; Z66 Do not resuscitate; Z96.642 Presence of left artificial hip joint; I34.0 Nonrheumatic mitral (valve) insufficiency; I50.9 Heart failure, unspecified; D50.9 Iron deficiency anemia, unspecified; I48.2 Chronic atrial fibrillation; N18.3 Chronic kidney disease, stage 3 (moderate); F01.50 Vascular dementia, unspecified severity, without behavioral disturbance, psychotic disturbance, mood disturbance, and anxiety; K59.00 Constipation, unspecified; E86.0 Dehydration; R13.10 Dysphagia, unspecified; E87.6 Hypokalemia; R32 Unspecified urinary incontinence; Z51.5 Encounter for palliative care; G47.00 Insomnia, unspecified; I49.5 Sick sinus syndrome; Z78.1 Physical restraint status; Z86.73 Personal history of transient ischemic attack (TIA), and cerebral infarction without residual deficits; Z79.899 Other long term (current) drug therapy
CPT/HCPCS: 36245; 71250; 74018; 74230; 76770; 76937; 78226; 82247; 82248; 82805; 83605; 83735; 84100; 84132; 84145; 84443; 86850; 86900; 86901; 86920; 87070; 87081; 87086; 92610; 92611; 92950; 93005; 93308; 93970; 94002; 94003; 94640; 97110; 97116; 97162; 97163; 97166; 97530; 97535; A9537; C9113; G0378; J0171; J0461; J0885; J1630; J2270; J2543; J2704; J3480; J3490; J7030; J7040; J7050; J7060; P9016